=== PATIENT | female | born 1960 | race Caucasian/White ===

== ENCOUNTER 2017-08-30 19:48 | Emergency (ER) | payer BC, SELFPAY | END 2017-08-30 22:17 | disposition home or self-care (01) | PROVIDERS: Emergency Provider Emergency Medicine; Family Provider Internal Medicine Adolescent Medicine; Visit Provider Emergency Medicine | DX: R09.1 Pleurisy (principal); E78.5 Hyperlipidemia, unspecified; E11.9 Type 2 diabetes mellitus without complications; Z72.0 Tobacco use; J44.9 Chronic obstructive pulmonary disease, unspecified | CPT/HCPCS: 71020; 80053; 82550; 82553; 83605; 84484; 85025; 85378; 87040; 93005; 93041; 94640; 96374; 96375; 99284 ==

== ENCOUNTER → 2018-02-07 13:10 | Outpatient (CLI) | payer SELFPAY | PROVIDERS: Visit Provider Nurse Practitioner Family ==

== ENCOUNTER → 2018-02-07 13:16 | Outpatient (CLI) | payer BC, SELFPAY ==
[2018-02-07 13:55] LABS: Hemoglobin A1C 5.9 % (0.0-7.0)
[2018-02-07 14:21] LABS: Alanine Aminotransferase 40 U/L (12-78); Albumin Level 3.9 gm/dL (3.4-5.0); Albumin/Globulin Ratio 1.2 (1.1-1.8); Alkaline Phosphatase 115 U/L (46-116); Anion Gap 16.3 mEq/L (5-15); Aspartate Amino Transferase 24 U/L (15-37); Bilirubin,Total 0.5 mg/dL (0.2-1.0); Blood Urea Nitrogen 13 mg/dL (7-18); Calcium 9.5 mg/dL (8.5-10.1); Carbon Dioxide 27 mmol/L (21.0-32.0); Chloride 102 mmol/L (98-107); Chol/HDL Ratio 3.6 (1-3.5); Cholesterol 166 mg/dL (140-200); Creatinine,Serum 0.97 mg/dL (0.55-1.02); Estimated Glomerular Filt Rate 59 ml/min (>60); GFR (African American) 71 ML/MIN (>60); Globulin 3.2 gm/dl (1.3-3.2); Glucose 102 mg/dL (74-106); HDL Cholesterol 46 mg/dL (29-89); LDL Cholesterol 93 mg/dL (0-130); Potassium 4.3 mmoL/L (3.5-5.1); Sodium 141 mmol/L (136-145); Thyroid Stimulating Hormone 2.63 uIU/ml (0.358-3.740); Total Protein,Serum 7.1 gm/dL (6.4-8.2); Triglycerides 133 mg/dL (30-200); VLDL Cholesterol 27 mg/dL (0-40)
[2018-02-08 19:23] LABS: Vitamin D 25 Hydroxy 64.4 ng/mL (30.0-100.0)
== END ==
PROVIDERS: Visit Provider Nurse Practitioner Family
DX: E11.9 Type 2 diabetes mellitus without complications (principal); E78.2 Mixed hyperlipidemia; E03.9 Hypothyroidism, unspecified; E55.9 Vitamin D deficiency, unspecified
CPT/HCPCS: 36415; 80053; 80061; 82652; 83036; 84443

== ENCOUNTER → 2018-07-17 16:13 | Outpatient (CLI) | payer BC, SELFPAY ==
--- NOTE | 2018-07-17 16:18 | MM_ITS ---
MM Dig screening mamm BI w/CAD CAD Screening COMPARISON: Digital mammograms with CAD 12/29/2015 and 06/14/2017 INDICATION: There is no personal or family history of breast cancer. This been previous biopsy left breast for benign disease. TECHNIQUE: Standard CC and MLO images were obtained. R2 CAD reviewed. FINDINGS: Prominent and diffuse heterogenic fibroglandular densities are seen in both breasts. There is a mole marker near the axillary tail left breast. There are scattered benign-appearing calcifications in each breast. A biopsy clip is seen outer quadrant left breast at the 3:00 position. There is no suspicious lesion and no suspicious microcalcifications. IMPRESSION: Diffusely dense parenchymal pattern with no suspicious lesion seen BI-RADS Category: 2 Benign Finding(s) RECOMMENDED FOLLOW-UP: 1YR - 1 YEAR FOLLOW-UP (A letter has been sent to the patient regarding results of the study.)
== END ==
PROVIDERS: PCP Nurse Practitioner Family; Visit Provider Nurse Practitioner Family
DX: Z12.31 Encounter for screening mammogram for malignant neoplasm of breast (principal)
CPT/HCPCS: 77067

== ENCOUNTER → 2018-09-19 11:15 | Outpatient (CLI) | payer BC, SELFPAY ==
[2018-09-19 12:32] LABS: Alanine Aminotransferase 40 U/L (12-78); Albumin Level 3.6 gm/dL (3.4-5.0); Albumin/Globulin Ratio 1.1 (1.1-1.8); Alkaline Phosphatase 103 U/L (46-116); Aspartate Amino Transferase 20 U/L (15-37); Bilirubin,Total 0.4 mg/dL (0.2-1.0); Blood Urea Nitrogen 11 mg/dL (7-18); Carbon Dioxide 30 mmol/L (21.0-32.0); Chloride 101 mmol/L (98-107); Chol/HDL Ratio 3.7 (1-3.5); Cholesterol 178 mg/dL (140-200); Creatinine,Serum 1.05 mg/dL (0.55-1.02); Estimated Glomerular Filt Rate 54 ml/min (>60); GFR (African American) 65 ML/MIN (>60); Globulin 3.3 gm/dl (1.3-3.2); Glucose 107 mg/dL (74-106); HDL Cholesterol 48 mg/dL (29-89); LDL Cholesterol 99 mg/dL (0-130); Sodium 140 mmol/L (136-145); Thyroid Stimulating Hormone 4.07 uIU/ml (0.358-3.740); Total Protein,Serum 6.9 gm/dL (6.4-8.2); Triglycerides 157 mg/dL (30-200); VLDL Cholesterol 31 mg/dL (0-40)
[2018-09-19 12:42] LABS: Hemoglobin A1C 5.9 % (0.0-7.0)
[2018-09-20 18:08] LABS: Vitamin D 25 Hydroxy 72.9 ng/mL (30.0-100.0)
== END ==
PROVIDERS: Visit Provider Nurse Practitioner Family
DX: E78.2 Mixed hyperlipidemia (principal); E11.9 Type 2 diabetes mellitus without complications; E06.9 Thyroiditis, unspecified; E55.9 Vitamin D deficiency, unspecified
CPT/HCPCS: 36415; 80053; 80061; 82652; 83036; 84443

== ENCOUNTER → 2019-01-01 16:03 | Outpatient (CLI) | payer BC, SELFPAY ==
[2019-01-01 18:40] LABS: Anion Gap 14.4 mEq/L (5-15); Blood Urea Nitrogen 18 mg/dL (7-18); Calcium 9.8 mg/dL (8.5-10.1); Carbon Dioxide 28 mmol/L (21.0-32.0); Chloride 102 mmol/L (98-107); Creatinine,Serum 1.13 mg/dL (0.55-1.02); Estimated Glomerular Filt Rate 49 ml/min (>60); GFR (African American) 60 ML/MIN (>60); Glucose 125 mg/dL (74-106); Potassium 4.4 mmoL/L (3.5-5.1); Sodium 140 mmol/L (136-145); Thyroid Stimulating Hormone 1.38 uIU/ml (0.358-3.740)
== END ==
PROVIDERS: Visit Provider Internal Medicine Adolescent Medicine
DX: E03.9 Hypothyroidism, unspecified (principal)
CPT/HCPCS: 36415; 80048; 84443

== ENCOUNTER → 2019-04-02 11:39 | Outpatient (CLI) | payer BC, SELFPAY ==
[2019-04-02 14:01] LABS: Alanine Aminotransferase 46 U/L (12-78); Albumin Level 3.4 gm/dL (3.4-5.0); Alkaline Phosphatase 114 U/L (46-116); Anion Gap 11.2 mEq/L (5-15); Aspartate Amino Transferase 18 U/L (15-37); Bilirubin,Total 0.4 mg/dL (0.2-1.0); Blood Urea Nitrogen 15 mg/dL (7-18); Calcium 9.3 mg/dL (8.5-10.1); Carbon Dioxide 31 mmol/L (21.0-32.0); Chloride 101 mmol/L (98-107); Cholesterol 147 mg/dL (140-200); Creatinine,Serum 1.03 mg/dL (0.55-1.02); Estimated Glomerular Filt Rate 55 ml/min (>60); GFR (African American) 66 ML/MIN (>60); Globulin 3.4 gm/dl (1.3-3.2); Glucose 98 mg/dL (74-106); HDL Cholesterol 37 mg/dL (29-89); LDL Cholesterol 75 mg/dL (0-130); Potassium 4.2 mmoL/L (3.5-5.1); Sodium 139 mmol/L (136-145); Thyroid Stimulating Hormone 2.55 uIU/ml (0.358-3.740); Total Protein,Serum 6.8 gm/dL (6.4-8.2); Triglycerides 174 mg/dL (30-200); VLDL Cholesterol 35 mg/dL (0-40)
[2019-04-02 15:01] LABS: Hemoglobin A1C 6.1 % (0.0-7.0)
[2019-04-03 08:23] LABS: Vitamin D 25 Hydroxy 46.8 ng/mL (30.0-100.0)
== END ==
PROVIDERS: Visit Provider Nurse Practitioner Family
DX: E11.9 Type 2 diabetes mellitus without complications (principal); E78.2 Mixed hyperlipidemia; E03.9 Hypothyroidism, unspecified; E55.9 Vitamin D deficiency, unspecified
CPT/HCPCS: 36415; 80053; 80061; 82652; 83036; 84443

== ENCOUNTER → 2019-08-20 16:33 | Outpatient (CLI) | payer BC, SELFPAY ==
--- NOTE | 2019-08-20 16:39 | MM_ITS ---
PROCEDURE: MM DIG SCREENING MAMM BI W/CAD CLINICAL INDICATION: ROUTINE SCREENING There is no personal or family history of breast cancer. There has been a previous biopsy left breast for benign disease. COMPARISON: DMDXUAVL DIG MAMM-DX UNI A/VWS-LT W/CAD from 06/26/2017 DMDXUL DIG MAMM-DX UNI-LT W/CAD from 07/25/2017 [facility] MM Dig screening mamm BI w/CAD from 07/17/2018 TECHNIQUE: Standard CC and MLO images were obtained. R2 CAD reviewed. FINDINGS: Moderate diffuse fibroglandular densities are seen in the central portions of both breasts. There are benign-appearing calcifications in each breast and there is a biopsy clip central portion left breast. There is a mole marker upper central left breast. There is no suspicious lesion in either breast and no suspicious microcalcifications. IMPRESSION: Fibrofatty parenchyma with no suspicious lesions seen BI-RAD Category: 2 Benign Finding(s) FOLLOW-UP: 1YR 1 Year Follow-up (A letter has been sent to the patient regarding results of the study.) Dictated by: Dr. Ricco Langston MD 08/24/2019 15:[address] Ricco Langston MD in [place] 08/24/2019 15:57
== END ==
PROVIDERS: PCP Internal Medicine Adolescent Medicine; Visit Provider Internal Medicine Adolescent Medicine
DX: Z12.31 Encounter for screening mammogram for malignant neoplasm of breast (principal)
CPT/HCPCS: 77067

== ENCOUNTER → 2019-09-24 11:31 | Outpatient (CLI) | payer BC, SELFPAY ==
[2019-09-24 12:07] LABS: Basophils # 0.1 K/mm3 (0-0.2); Basophils % 0.9 % (0.1-2.0); Eosinophils # 0.3 K/mm3 (0.0-0.4); Eosinophils % 2.5 % (0.1-12.0); Hematocrit 46.4 % (37.0-47.0); Hemoglobin 14.8 g/dL (12.2-16.2); Lymphocytes # 3.1 K/mm3 (0.7-4.5); Lymphocytes % 28.7 % (10-50); Mean Corpuscular Volume 87.5 fl (81-99); Mean Platelet Volume 7.6 fl (7.4-10.4); Monocytes # 0.5 K/mm3 (0.1-1.0); Monocytes % 4.4 % (1.7-9.3); Neutrophils # 6.8 K/mm3 (1.8-7.8); Neutrophils % 63.4 % (37.0-80.0); Platelet Count 352 K/mm3 (142-424); White Blood Count 10.7 K/mm3 (4.8-10.8)
[2019-09-24 12:08] LABS: Hemoglobin A1C 6.3 % (0.0-7.0)
[2019-09-24 14:31] LABS: Alanine Aminotransferase 42 U/L (12-78); Albumin Level 3.7 gm/dL (3.4-5.0); Albumin/Globulin Ratio 1.1 (1.1-1.8); Alkaline Phosphatase 131 U/L (46-116); Anion Gap 14.5 mEq/L (5-15); Aspartate Amino Transferase 21 U/L (15-37); Bilirubin,Total 0.5 mg/dL (0.2-1.0); Blood Urea Nitrogen 22 mg/dL (7-18); Calcium 9.5 mg/dL (8.5-10.1); Carbon Dioxide 26 mmol/L (21.0-32.0); Chloride 102 mmol/L (98-107); Chol/HDL Ratio 5.5 (1-3.5); Cholesterol 216 mg/dL (140-200); Creatinine,Serum 0.98 mg/dL (0.55-1.02); Estimated Glomerular Filt Rate 58 ml/min (>60); GFR (African American) 70 ML/MIN (>60); Globulin 3.3 gm/dl (1.3-3.2); Glucose 129 mg/dL (74-106); HDL Cholesterol 39 mg/dL (29-89); LDL Cholesterol 134 mg/dL (0-130); Potassium 4.5 mmoL/L (3.5-5.1); Sodium 138 mmol/L (136-145); Thyroid Stimulating Hormone 2.82 uIU/ml (0.358-3.740); Triglycerides 213 mg/dL (30-200); VLDL Cholesterol 43 mg/dL (0-40)
[2019-09-25 15:41] LABS: Vitamin D 25 Hydroxy 30.2 ng/mL (30.0-100.0)
== END ==
PROVIDERS: Visit Provider Internal Medicine Adolescent Medicine
DX: E78.2 Mixed hyperlipidemia (principal); E03.9 Hypothyroidism, unspecified; E55.9 Vitamin D deficiency, unspecified; E11.9 Type 2 diabetes mellitus without complications; Z79.84 Long term (current) use of oral hypoglycemic drugs
CPT/HCPCS: 36415; 80053; 80061; 82652; 83036; 84443; 85025

== ENCOUNTER → 2019-11-10 15:32 | Outpatient (CLI) | payer BC, SELFPAY ==
--- NOTE | 2019-11-10 | XR_ITS ---
PROCEDURE: XR CHEST 2V CLINICAL HISTORY: COMPARISON: CXR CHEST(2 VIEWS-NOT PORTABLE) from 08/30/2017 XR CHEST 2V from 07/17/2019 XR CHEST 2V from 09/10/2019 XR CHEST 2V from 09/13/2019 FINDINGS: The cardiomediastinal silhouette and pulmonary vascularity are within normal limits. There is patchy increased density in the right lower lobe consistent with infiltrate. Calcified granulomas present left lower lobe. No acute bony abnormalities. IMPRESSION: Patchy right lower lobe infiltrate Dictated by: Agus Bucio MD 11/10/2019 17:21 Electronically signed by Agus Bucio MD in [place] 11/10/2019 17:21
[2019-11-10 17:37] LABS: Adenovirus,PCR Not Detected (NotDetected); Bordetella Pertussis Not Detected (NotDetected); Chlamydophila Pneumoniae, PCR Not Detected (NotDetected); Coronavirus 229E Not Detected (NotDetected); Coronavirus NL63 Not Detected (NotDetected); Coronavirus OC43 Not Detected (NotDetected); Coronovirus HKU1,PCR Not Detected (NotDetected); Human Metapneumovirus Not Detected (NotDetected); Influenza A, PCR Not Detected (NotDetected); Influenza AH1, 2009 Not Detected (NotDetected); Influenza AH1, PCR Not Detected (NotDetected); Influenza AH3,PCR Not Detected (NotDetected); Influenza B, PCR Not Detected (NotDetected); Mycoplasma Pneumoniae, PCR Not Detected (NotDetected); Parainfluenza 1, PCR Not Detected (NotDetected); Parainfluenza 2, PCR Not Detected (NotDetected); Parainfluenza 3, PCR Not Detected (NotDetected); Parainfluenza 4, PCR Not Detected (NotDetected); Respiratory Syncytial Virus Not Detected (NotDetected); Rhinovirus/Enterovirus Not Detected (NotDetected)
[2019-11-10 17:54] LABS: Basophils # 0.1 K/mm3 (0-0.2); Basophils % 0.7 % (0.1-2.0); Eosinophils # 0.3 K/mm3 (0.0-0.4); Eosinophils % 2.9 % (0.1-12.0); Hematocrit 41.3 % (37.0-47.0); Hemoglobin 13.8 g/dL (12.2-16.2); Lymphocytes # 3.4 K/mm3 (0.7-4.5); Lymphocytes % 29.1 % (10-50); Mean Corpuscular HGB Conc 33.3 g/dL (31.8-35.4); Mean Corpuscular Hemoglobin 28.8 pg (27.0-31.2); Mean Corpuscular Volume 86.4 fl (81-99); Monocytes # 0.4 K/mm3 (0.1-1.0); Monocytes % 3.5 % (1.7-9.3); Neutrophils # 7.5 K/mm3 (1.8-7.8); Neutrophils % 63.7 % (37.0-80.0); Platelet Count 344 K/mm3 (142-424); Red Blood Count 4.78 M/mm3 (4.20-5.40); Red Cell Distribution Width 13.6 % (11.5-17.5); White Blood Count 11.7 K/mm3 (4.8-10.8)
[2019-11-10 20:09] LABS: Chloride 102 mmol/L (98-107)
[2019-11-10 20:10] LABS: Potassium 4.5 mmoL/L (3.5-5.1); Sodium 139 mmol/L (136-145)
[2019-11-10 20:12] LABS: Blood Urea Nitrogen 18 mg/dl (7-17); Estimated Glomerular Filt Rate 57 ml/min (>60); GFR (African American) 69 ML/MIN (>60)
[2019-11-10 20:13] LABS: Anion Gap 15.5 mEq/L (5-15); Calcium 10.2 mg/dl (8.4-10.2); Carbon Dioxide 26 mmol/L (22.0-30.0); Glucose 134 mg/dl (74-100)
== END ==
PROVIDERS: PCP Internal Medicine Adolescent Medicine; Visit Provider Nurse Practitioner Family
DX: R05 Cough (principal); R68.89 Other general symptoms and signs; R06.2 Wheezing
CPT/HCPCS: 36415; 71046; 80048; 85025; 87486; 87581; 87633; 87798

== ENCOUNTER → 2019-11-24 12:54 | Outpatient (CLI) | payer BC, SELFPAY ==
[2019-11-24 13:19] LABS: Basophils # 0.1 K/mm3 (0-0.2); Basophils % 0.7 % (0.1-2.0); Eosinophils # 0.2 K/mm3 (0.0-0.4); Hemoglobin 13.6 g/dL (12.2-16.2); Lymphocytes # 3.6 K/mm3 (0.7-4.5); Lymphocytes % 31.9 % (10-50); Mean Corpuscular HGB Conc 33.3 g/dL (31.8-35.4); Mean Corpuscular Hemoglobin 28.6 pg (27.0-31.2); Mean Corpuscular Volume 85.8 fl (81-99); Mean Platelet Volume 7.1 fl (7.4-10.4); Monocytes # 0.5 K/mm3 (0.1-1.0); Monocytes % 4.8 % (1.7-9.3); Neutrophils # 6.8 K/mm3 (1.8-7.8); Neutrophils % 60.7 % (37.0-80.0); Platelet Count 358 K/mm3 (142-424); Red Blood Count 4.78 M/mm3 (4.20-5.40); Red Cell Distribution Width 13.5 % (11.5-17.5); White Blood Count 11.2 K/mm3 (4.8-10.8)
[2019-11-24 14:03] LABS: Erythrocyte Sedimentation Rate 22 mm/hr (0-30)
[2019-11-24 14:59] LABS: Chloride 101 mmol/L (98-107)
[2019-11-24 15:00] LABS: Sodium 140 mmol/L (136-145)
[2019-11-24 15:02] LABS: Alanine Aminotransferase 32 U/L (12-78); Alkaline Phosphatase 91 U/L (38-126); Aspartate Amino Transferase 30 U/L (14-36); Bilirubin,Total 0.2 mg/dl (0.2-1.3); Blood Urea Nitrogen 19 mg/dl (7-17); Carbon Dioxide 30 mmol/L (22.0-30.0); Creatine Kinase 62 U/L (30-135); Estimated Glomerular Filt Rate 64 ml/min (>60); GFR (African American) 77 ML/MIN (>60)
[2019-11-24 15:03] LABS: Albumin/Globulin Ratio 1.5 (1.1-1.8); Calcium 9.7 mg/dl (8.4-10.2); Globulin 2.6 g/dL (1.3-3.2); Glucose 105 mg/dl (74-100); Total Protein,Serum 6.6 g/dl (6.3-8.2)
== END ==
PROVIDERS: Visit Provider Nurse Practitioner Family
DX: J18.9 Pneumonia, unspecified organism (principal); M25.50 Pain in unspecified joint
CPT/HCPCS: 36415; 80053; 82550; 85025; 85651

== ENCOUNTER → 2020-01-06 13:59 | Outpatient (CLI) | payer BC, SELFPAY ==
[2020-01-06 15:52] LABS: Basophils # 0.1 K/mm3 (0-0.2); Eosinophils # 0.3 K/mm3 (0.0-0.4); Eosinophils % 2.3 % (0.1-12.0); Hematocrit 43.5 % (37.0-47.0); Hemoglobin 14.4 g/dL (12.2-16.2); Lymphocytes # 3.6 K/mm3 (0.7-4.5); Lymphocytes % 29.2 % (10-50); Mean Corpuscular HGB Conc 33.2 g/dL (31.8-35.4); Mean Corpuscular Hemoglobin 28.3 pg (27.0-31.2); Mean Corpuscular Volume 85.2 fl (81-99); Mean Platelet Volume 8.1 fl (7.4-10.4); Monocytes # 0.6 K/mm3 (0.1-1.0); Monocytes % 4.7 % (1.7-9.3); Neutrophils # 7.8 K/mm3 (1.8-7.8); Neutrophils % 62.7 % (37.0-80.0); Platelet Count 373 K/mm3 (142-424); Red Blood Count 5.11 M/mm3 (4.20-5.40); Red Cell Distribution Width 13.6 % (11.5-17.5); White Blood Count 12.4 K/mm3 (4.8-10.8)
[2020-01-06 16:20] LABS: Chloride 101 mmol/L (98-107)
[2020-01-06 16:21] LABS: Potassium 4.2 mmoL/L (3.5-5.1); Sodium 139 mmol/L (136-145)
[2020-01-06 16:23] LABS: Alanine Aminotransferase 46 U/L (12-78); Alkaline Phosphatase 135 U/L (38-126); Anion Gap 13.2 mEq/L (5-15); Aspartate Amino Transferase 31 U/L (14-36); Bilirubin,Total 0.5 mg/dl (0.2-1.3); Blood Urea Nitrogen 15 mg/dl (7-17); Carbon Dioxide 29 mmol/L (22.0-30.0); Cholesterol 152 mg/dl (140-200); Estimated Glomerular Filt Rate 64 ml/min (>60); GFR (African American) 77 ML/MIN (>60); Triglycerides 194 mg/dl (30-150); VLDL Cholesterol 39 mg/dL (0-40)
[2020-01-06 16:24] LABS: Albumin Level 4.5 g/dl (3.5-5.0); Albumin/Globulin Ratio 1.7 (1.1-1.8); Chol/HDL Ratio 4.1 (1-3.5); Globulin 2.6 g/dL (1.3-3.2); Glucose 99 mg/dl (74-100); HDL Cholesterol 37 mg/dl (40-60); Total Protein,Serum 7.1 g/dl (6.3-8.2)
[2020-01-06 16:31] LABS: Hemoglobin A1C 5.8 % (4.0-6.0)
[2020-01-06 16:35] LABS: Direct LDL Cholesterol 108.62 mg/dL (100-129)
[2020-01-09 09:18] LABS: Vitamin D 25 Hydroxy 46.5 ng/mL (30.0-100.0)
== END ==
PROVIDERS: Visit Provider Internal Medicine Adolescent Medicine
DX: E78.2 Mixed hyperlipidemia (principal); E03.9 Hypothyroidism, unspecified; E55.9 Vitamin D deficiency, unspecified; E11.9 Type 2 diabetes mellitus without complications; Z79.84 Long term (current) use of oral hypoglycemic drugs
CPT/HCPCS: 36415; 80053; 80061; 82652; 83036; 84443; 85025

== ENCOUNTER → 2020-08-24 15:55 | Outpatient (CLI) | payer BC, SELFPAY ==
--- NOTE | 2020-08-24 15:57 | MM_ITS ---
PROCEDURE: MM DIG SCREENING MAMM BI W/CAD Digital Breast Tomosynthesis Included CLINICAL INDICATION: SCREENING There is no personal or family history of breast cancer. There has been a previous biopsy left breast for benign disease. COMPARISON: MG DMDXUL DIG MAMM-DX UNI-LT W/CAD from 07/25/2017 MG [facility] MM Dig screening mamm BI w/CAD from 07/17/2018 MG MM DIG SCREENING MAMM BI W/CAD from 08/20/2019 TECHNIQUE: Standard CC and MLO images and 3D Tomosynthesis was obtained. R2 CAD reviewed. FINDINGS: Prominent and somewhat heterogenic fibroglandular densities are seen throughout both breast. There is a biopsy clip left breast. There is a mole marker upper central portion left breast. There are couple of benign-appearing microcalcifications in each breast. There is no new or suspicious lesion in either breast and no suspicious microcalcifications. IMPRESSION: Moderate heterogenic density with no suspicious lesions seen BI-RAD Category: 2 Benign Finding(s) FOLLOW-UP: 1YR 1 Year Follow-up (A letter has been sent to the patient regarding results of the study.) Dictated by: Dr. Ricco Langston MD 08/27/2020 08:56 Dr. Ricco Langston MD in [place] 08/27/2020 08:56
== END ==
PROVIDERS: PCP Internal Medicine Adolescent Medicine; Visit Provider Internal Medicine Adolescent Medicine
DX: Z12.31 Encounter for screening mammogram for malignant neoplasm of breast (principal)
CPT/HCPCS: 77063; 77067

== ENCOUNTER → 2020-10-04 14:12 | Outpatient (CLI) | payer BC, SELFPAY ==
[2020-10-04 14:36] LABS: Basophils # 0.1 K/mm3 (0-0.2); Basophils % 1.2 % (0.1-2.0); Eosinophils # 0.6 K/mm3 (0.0-0.4); Eosinophils % 5.5 % (0.1-12.0); Hematocrit 48.1 % (37.0-47.0); Hemoglobin 15.8 g/dL (12.2-16.2); Lymphocytes # 3.6 K/mm3 (0.7-4.5); Lymphocytes % 33.2 % (10-50); Mean Corpuscular Hemoglobin 28.5 pg (27.0-31.2); Mean Corpuscular Volume 86.5 fl (81-99); Mean Platelet Volume 7.9 fl (7.4-10.4); Monocytes # 0.4 K/mm3 (0.1-1.0); Monocytes % 3.9 % (1.7-9.3); Neutrophils % 56.2 % (37.0-80.0); Platelet Count 351 K/mm3 (142-424); Red Blood Count 5.56 M/mm3 (4.20-5.40); Red Cell Distribution Width 14.2 % (11.5-17.5); White Blood Count 10.7 K/mm3 (4.8-10.8)
[2020-10-04 15:27] LABS: Hemoglobin A1C 6.1 % (4.0-6.0)
[2020-10-04 15:51] LABS: Chloride 104 mmol/L (98-107); Potassium 4.3 mmoL/L (3.5-5.1); Sodium 139 mmol/L (136-145)
[2020-10-04 15:54] LABS: Alanine Aminotransferase 57 U/L (12-78); Albumin Level 4.4 g/dl (3.5-5.0); Albumin/Globulin Ratio 1.6 (1.1-1.8); Alkaline Phosphatase 115 U/L (38-126); Anion Gap 13.3 mEq/L (5-15); Aspartate Amino Transferase 40 U/L (14-36); Bilirubin,Total 0.7 mg/dl (0.2-1.3); Blood Urea Nitrogen 12 mg/dl (7-17); Calcium 9.9 mg/dl (8.4-10.2); Carbon Dioxide 26 mmol/L (22.0-30.0); Cholesterol 131 mg/dl (140-200); Estimated Glomerular Filt Rate 57 ml/min (>60); GFR (African American) 68 ML/MIN (>60); Globulin 2.8 g/dL (1.3-3.2); Glucose 128 mg/dl (74-100); Total Protein,Serum 7.2 g/dl (6.3-8.2); Triglycerides 154 mg/dl (30-150); VLDL Cholesterol 31 mg/dL (0-40)
[2020-10-04 16:06] LABS: Direct LDL Cholesterol 65.54 mg/dL (100-129)
[2020-10-04 16:18] LABS: 25-OH Vitamin D, Total 32.3 ng/mL (30-100)
[2020-10-04 16:24] LABS: Thyroid Stimulating Hormone 1.29 uIU/mL (0.465-4.68)
[2020-10-04 16:42] LABS: Chol/HDL Ratio 3.2 (1-3.5); HDL Cholesterol 41 mg/dl (40-60)
== END ==
PROVIDERS: Visit Provider Internal Medicine Adolescent Medicine
DX: E78.2 Mixed hyperlipidemia (principal); E03.9 Hypothyroidism, unspecified; E55.9 Vitamin D deficiency, unspecified; E11.9 Type 2 diabetes mellitus without complications; Z79.84 Long term (current) use of oral hypoglycemic drugs
CPT/HCPCS: 36415; 80053; 80061; 82306; 83036; 84443; 85025

== ENCOUNTER → 2020-11-10 14:13 | Outpatient (CLI) | payer SELFPAY ==
[2020-11-10 18:20] LABS: Coronavirus 19 IgG Antibody Negative (Negative); Coronavirus 19 IgM Antibody Negative (Negative)
== END ==
PROVIDERS: Visit Provider Internal Medicine Gastroenterology
DX: Z01.818 Encounter for other preprocedural examination (principal); Z20.822 Contact with and (suspected) exposure to COVID-19; Z12.11 Encounter for screening for malignant neoplasm of colon
CPT/HCPCS: 36415; 86328

== ENCOUNTER 2020-11-12 09:25 | Day surgery (SDC) | payer BC, SELFPAY ==
[2020-11-03 09:08] VITALS: BMI 37.9
[2020-11-12] VITALS (7 sets, daily range): BP systolic 132–151; BP diastolic 78–93; PULSE 69–78; RESP 18; TEMP 35.6–36.4; O2SAT 91–97
[2020-11-12 10:11] LABS: POC Glucose,Bedside 140 (70-110)
--- NOTE | 2020-11-12 10:14 | P.PN_ITS ---
[facility] Anesthesia Checklist - Patient Identification Patient Identification: Verbal (Name & ) - Structural Data Admitted From: Home Planned Operative Procedure/s: colonoscopy Consent for Planned Operative Procedure(s) Verified: Yes Verified Documents: Surgical Consent - NPO Status Verified Time NPO: 00:00 - Cardiovascular Assessment Heart Sounds: S1 & S2 Pulse Rhythm: Regular - Airway Assessment C-Spine Mobility Assessed: Yes TMJ Mobility Assessed: Yes Dentition: Good Dentition - Neurological Assessment Level of Consciousness: Awake - Anesthesia Plan Anesthesia Risk discussed: Yes ASA Class: III Anesthesia Type: MAC [facility] History I have reviewed the patient's past medical history: Yes Medical History: Reports:: Cancer (cervical 1984), Diabetes Mellitus Type 2 Denies:: MRSA, Seizures *Have you ever received a pneumonia vaccine?: No *Have you received a flu vaccine this season?: Yes Anesthesia experience/problems:: none Laterality Cases: Right: Carpal Tunnel Release, Bilateral: Tonsillectomy Amputation: No Fractures: Yes (r foot) - *Social History Last grade of school completed: High school graduate Smoking Status: Current every day smoker Tobacco Type: cigarettes # Packs/Day (cigarettes): 1 Alcohol Intake: never Substance Use Type: marijuana *Occupational Status:: retired *Travel in the last 8 weeks: None Family Hx:: No significant family history
--- NOTE | 2020-11-12 10:46 | P.PCN_ITS ---
[facility] Procedure Note Procedure Note:: Flexible Sigmoidoscopy Procedure Report: Sigmoidoscopy Endoscopist: Jesse Vázquez II, MD Referring physician: Gilmer Hayward M.D. Date of Procedure: November 10, 2020 Equipment: Olympus 180 variable stiffness pediatric colonoscope Sedation: MAC sedation Indication: Mrs. Hidalgo is a 60-year-old female who is here for screening colonoscopy. The patient did have a colonoscopy in March 2016 and had a hyperplastic polyp removed. She has had crampy lower abdominal discomfort, bloating and gassiness. She also alternates between constipation and diarrhea. She reports no rectal bleeding, weight loss or family history of colon cancer. She did have prior hysterectomy. Procedure: Prior to the procedure, a history and physical exam was performed, and patient's medications and allergies were reviewed. The risks, benefits and alternatives of the sedation and procedure were discussed with the patient. All questions were answered and informed consent was obtained. The patient was brought to the procedure room. Patient identification and proposed procedure were verified by the physician and the nurse. The patient was placed in a left lateral decubitus position and the scope was passed under direct vision. Throughout the procedure, the patient's blood pressure, pulse, and oxygen saturations were monitored continuously. The colonoscopy was accomplished without difficulty. The patient tolerated the procedure well. Findings: On digital rectal examination there was normal rectal tone and there were no external hemorrhoids. The scope was then introduced through the anal canal to the rectum and advanced to 30 to 35 cm. There were marked pericolonic adhesions in the sigmoid colon with apparent fixed sigmoid colon making proximal advancement of the colonoscope very difficult. Because of this pericolonic adhesions and fixed nature of the this area of the sigmoid colon, I did deem thi s to have some risk trying to traverse this area of sigmoid colon. After some time, the procedure was aborted. There were extensive diverticulosis in the sigmoid colon. There were grade 1-2 internal hemorrhoids. Impression: 1. Sigmoid diverticulosis with marked sigmoid pericolonic adhesions impairing advancement through this area with colonoscope (incomplete colonoscopy) 2. Grade 1-2 internal hemorrhoids Plan: I do feel that the sigmoid adhesions are responsible for her bloating and crampy abdominal discomfort. I will will advise either virtual colonoscopy or Cologuard for screening. She is not yet due if she had full colonoscopy in March 2016 with only hyperplastic polyp. We will discuss this. I will also discuss whether surgical repair of these marked and dense sigmoid adhesions may improve her bowel function and quality of life.
== END 2020-11-12 11:45 | disposition home or self-care (01) ==
LOC: OUTP 09:26
PROVIDERS: PCP Internal Medicine Adolescent Medicine; Visit Provider Internal Medicine Gastroenterology
PROC: 0DJD8ZZ Inspection of Lower Intestinal Tract, Via Natural or Artificial Opening Endoscopic (ICD-10-PCS; CPT 45330; principal; 2020-11-12 10:30)
DX: Z12.11 Encounter for screening for malignant neoplasm of colon (principal); K56.50 Intestinal adhesions [bands], unspecified as to partial versus complete obstruction; Z86.010 Personal history of colon polyps; E11.9 Type 2 diabetes mellitus without complications; Z85.41 Personal history of malignant neoplasm of cervix uteri; Z87.39 Personal history of other diseases of the musculoskeletal system and connective tissue; Z72.0 Tobacco use; Z79.84 Long term (current) use of oral hypoglycemic drugs; Z79.51 Long term (current) use of inhaled steroids; Z79.899 Other long term (current) drug therapy
CPT/HCPCS: 45330; 82962

== ENCOUNTER → 2020-12-01 09:19 | Outpatient (CLI) | payer BC, SELFPAY ==
--- NOTE | 2020-12-01 09:25 | CT_ITS ---
PROCEDURE: CT ABDOMEN WO CON CLINICAL HISTORY: CHRONIC CONSTIPATION, INTRA-ABDOMINAL ADHESIONS Lower abd cramping bloating Internal hemorrhoids Intermittent nausea/vomiting after eating COMPARISON: CT ABDPELW/O CT ABD PELVIS W/O CONTRAST from 04/03/2016 TECHNIQUE: Axial images obtained with sagittal and coronal reformats. All CT scans at the facility use one or more dose reduction, viz: automated exposure control, ma/kV adjustment per patient size (including targeted exams where dose is matched to indication, i.e. head), or iterative reconstruction technique. FINDINGS: 4 mm nodules present in the right middle lobe incompletely imaged. Coronary artery calcifications are present. Fatty liver. The spleen, and pancreas have an unremarkable appearance. No renal or ureteral calculi. There are bilateral low-dense adrenal nodules consistent with adenomas. The right adrenal nodule measures 2.9 cm in the left adrenal nodule measures 2.8 cm. No intestinal obstruction or free air. No evidence of appendicitis. No abdominal mass evident. Exam does not include the entire pelvis. No acute bony anomalies. There is a tiny umbilical hernia containing fat IMPRESSION: Bilateral adrenal nodules consistent with adenomas not significantly changed. No acute abdominal or pelvic findings. 4 mm right middle lobe nodule. This may been present on the previous exam only minimally more prominent. Dictated by: Agus Bucio MD 12/02/2020 10:27 Agus Bucio MD in [place] 12/02/2020 10:27
== END ==
PROVIDERS: PCP Internal Medicine Adolescent Medicine; Visit Provider Internal Medicine Adolescent Medicine
DX: K66.0 Peritoneal adhesions (postprocedural) (postinfection) (principal); K59.09 Other constipation
CPT/HCPCS: 74150

== ENCOUNTER → 2021-01-25 09:16 | Outpatient (CLI) | payer BC, SELFPAY ==
--- NOTE | 2021-01-25 09:21 | US_ITS ---
PROCEDURE: US ABDOMEN LIMITED CLINICAL INDICATION: ABD PAIN COMPARISON: No exams were available for comparison FINDINGS: PANCREAS: Unremarkable. No obvious mass or abnormal fluid collection. No ductal dilatation LIVER: Diffuse increased echogenicity of the liver with poor through transmission of sound consistent with hepatic steatosis. No focal liver lesion demonstrated. There is appropriate direction of blood flow within non dilated portal vein. RIGHT KIDNEY: Unremarkable. Normal size and echogenicity. No hydronephrosis GALLBLADDER: No gallstones, gallbladder wall thickening, pericholecystic fluid, or biliary dilatation. IMPRESSION: Fatty liver otherwise negative right upper quadrant ultrasound Dictated by: Agus Bucio MD 01/25/2021 14:48 Agus Bucio MD in [place] 01/25/2021 14:48
== END ==
PROVIDERS: PCP Internal Medicine Adolescent Medicine; Visit Provider Surgery
DX: R10.9 Unspecified abdominal pain (principal)
CPT/HCPCS: 76705

== ENCOUNTER → 2021-07-01 09:37 | Outpatient (CLI) | payer BC, SELFPAY ==
[2021-07-01 10:19] LABS: Basophils # 0.2 K/mm3 (0-0.2); Basophils % 0.9 % (0.1-2.0); Eosinophils # 0.5 K/mm3 (0.0-0.4); Eosinophils % 3.1 % (0.1-12.0); Hematocrit 47.2 % (37.0-47.0); Hemoglobin 15.2 g/dL (12.2-16.2); Lymphocytes # 5.8 K/mm3 (0.7-4.5); Lymphocytes % 33.5 % (10-50); Mean Corpuscular HGB Conc 32.3 g/dL (31.8-35.4); Mean Corpuscular Hemoglobin 28.5 pg (27.0-31.2); Mean Corpuscular Volume 88.5 fl (81-99); Mean Platelet Volume 7.2 fl (7.4-10.4); Monocytes # 0.8 K/mm3 (0.1-1.0); Monocytes % 4.7 % (1.7-9.3); Neutrophils # 9.9 K/mm3 (1.8-7.8); Neutrophils % 57.7 % (37.0-80.0); Platelet Count 347 K/mm3 (142-424); Red Blood Count 5.33 M/mm3 (4.20-5.40); Red Cell Distribution Width 13.4 % (11.5-17.5); White Blood Count 17.2 K/mm3 (4.8-10.8)
[2021-07-01 10:21] LABS: MANUAL DIFFERENTIAL MANUAL DIFFERENTIAL (MANUAL DIFF)
[2021-07-01 10:52] LABS: Eosinophils % 2 % (0-3); Lymphocytes % 33 % (10-50); Monocytes % 4 % (2-9); Neutrophils % 61 % (42-76); Platelet Estimate Normal; RBC Morphology Normal; Total Cells Counted 100
[2021-07-01 10:57] LABS: Chloride 104 mmol/L (98-107)
[2021-07-01 10:58] LABS: Sodium 144 mmol/L (136-145)
[2021-07-01 11:00] LABS: Alanine Aminotransferase 27 U/L (12-78); Albumin Level 4.3 g/dl (3.5-5.0); Albumin/Globulin Ratio 1.5 (1.1-1.8); Alkaline Phosphatase 101 U/L (38-126); Aspartate Amino Transferase 29 U/L (14-36); Bilirubin,Total 0.7 mg/dl (0.2-1.3); Blood Urea Nitrogen 8 mg/dl (7-17); Estimated Glomerular Filt Rate 73 ml/min (>60); GFR (African American) 88 ML/MIN (>60); Globulin 2.9 g/dL (1.3-3.2); Total Protein,Serum 7.2 g/dl (6.3-8.2)
[2021-07-01 11:01] LABS: Calcium 9.4 mg/dl (8.4-10.2); Carbon Dioxide 29 mmol/L (22.0-30.0); Chol/HDL Ratio 3.3 (1-3.5); Cholesterol 142 mg/dl (140-200); Glucose 129 mg/dl (74-100); HDL Cholesterol 43 mg/dl (40-60); Triglycerides 173 mg/dl (30-150); VLDL Cholesterol 35 mg/dL (0-40)
[2021-07-01 11:31] LABS: Thyroid Stimulating Hormone 1.79 uIU/mL (0.465-4.68)
== END ==
PROVIDERS: Visit Provider Internal Medicine Adolescent Medicine
DX: E11.9 Type 2 diabetes mellitus without complications (principal); E78.2 Mixed hyperlipidemia; E03.9 Hypothyroidism, unspecified; Z79.84 Long term (current) use of oral hypoglycemic drugs
CPT/HCPCS: 36415; 80053; 80061; 83036; 84443; 85007; 85025

== ENCOUNTER → 2021-08-30 15:39 | Outpatient (CLI) | payer BC, SELFPAY ==
--- NOTE | 2021-08-30 15:42 | MM_ITS ---
PROCEDURE INFORMATION: Exam: MG Bilateral Screening 3D Mammography Exam date and time: 08/30/2021 3:42 PM Age: 60 years old Clinical indication: Encounter for screening mammogram for malignant neoplasm of breast TECHNIQUE: Imaging protocol: Bilateral screening tomosynthesis and 2D mammography including computer-aided detection (CAD) when performed. COMPARISON: 1. MG MM DIG SCREENING MAMM BI W/CAD 08/24/2020 4:11 PM 2. MG MM DIG SCREENING MAMM BI W/CAD 08/20/2019 4:46 PM FINDINGS: MAMMOGRAPHY: Breast composition: The breast tissue is composed of scattered areas of fibroglandular density. Mass: None. Architectural distortion: None. Calcifications: No suspicious calcifications. Asymmetric density: None. Skin thickening: None. Axillary adenopathy: None. IMPRESSION: No mammographic evidence of malignancy. Annual screening is recommended unless otherwise clinically indicated. ASSESSMENT: BI-RADS Category 1: Negative
== END ==
PROVIDERS: PCP Internal Medicine Adolescent Medicine; Visit Provider Internal Medicine Adolescent Medicine
DX: Z12.31 Encounter for screening mammogram for malignant neoplasm of breast (principal)
CPT/HCPCS: 77063; 77067

== ENCOUNTER → 2021-09-14 15:43 | Outpatient (CLI) | payer BC, SELFPAY | PROVIDERS: PCP Internal Medicine Adolescent Medicine; Visit Provider Nurse Practitioner | DX: Z20.822 Contact with and (suspected) exposure to COVID-19 (principal) | CPT/HCPCS: C9803; U0003; U0005 ==

== ENCOUNTER → 2022-05-01 08:25 | Outpatient (CLI) | payer BC, SELFPAY ==
--- NOTE | 2022-05-01 08:30 | US_ITS ---
FINAL REPORT CLINICAL HISTORY: EMESIS, PRESISTANT. RIGHT UPPER QUADRANT PAIN FINDINGS: ULTRASOUND RIGHT UPPER QUADRANT Sonographic imaging of the right upper quadrant was obtained. The pancreas is partially obscured. The liver is unremarkable. There is sludge within the gallbladder with no gallstones. There is no gallbladder wall thickening. There is no biliary ductal dilatation. The common duct is normal at 2 mm. Limited images of the right kidney are unremarkable. IMPRESSION: Sludge within the gallbladder with no gallstones. Otherwise unremarkable exam. Reviewed, Interpreted and Dictated by Tommy Mccarty MD Transcribed by Maryanne Lovett Authenticated and [facility]
== END ==
PROVIDERS: PCP Internal Medicine Adolescent Medicine; Visit Provider Internal Medicine Adolescent Medicine
DX: R10.11 Right upper quadrant pain (principal); R11.15 Cyclical vomiting syndrome unrelated to migraine
CPT/HCPCS: 76705

== ENCOUNTER → 2022-05-23 13:28 | Outpatient (CLI) | payer BC, SELFPAY | PROVIDERS: PCP Internal Medicine Adolescent Medicine; Visit Provider Internal Medicine Gastroenterology | DX: Z01.818 Encounter for other preprocedural examination (principal); Z20.822 Contact with and (suspected) exposure to COVID-19; Z13.810 Encounter for screening for upper gastrointestinal disorder | CPT/HCPCS: C9803; U0003; U0005 ==

== ENCOUNTER 2022-05-25 10:34 | Day surgery (SDC) | payer BC, SELFPAY ==
[2022-05-23 11:52] VITALS: BMI 29.8
[2022-05-25 11:41] VITALS: BP 142/75; PULSE 74; RESP 17; TEMP 36.4; O2SAT 97
[2022-05-25 11:49] LABS: POC Glucose,Bedside 110 (70-110)
--- NOTE | 2022-05-25 11:56 | P.PN_ITS ---
[facility] Medical History Cervical cancer COPD (chronic obstructive pulmonary disease) Diabetes mellitus, type 2 History of gastroesophageal reflux (GERD) Hyperlipidemia Hypertension Hypothyroid Kidney stone Surgical History (Updated 05/25/22 @ 11:39 by Lea Avila, RN) H/O colonoscopy H/O LEEP History of carpal tunnel surgery of right wrist History of esophagogastroduodenoscopy (EGD) History of hysterectomy History of open reduction and internal fixation (ORIF) procedure History of tonsillectomy Family History (Updated 05/25/22 @ 11:40 by Lea Avila, RN) Other AD (Alzheimer's disease) Family history of cancer Family history of diabetes mellitus type II Family history of hypertension Family history of myocardial infarction Family history of stroke Social History (Updated 05/25/22 @ 11:41 by Lea Avila, RN) Smoking Status: Current every day smoker tobacco type: cigarettes packs per day: 1 alcohol intake: never substance use type: marijuana current occupational status: retired Travel in the last 8 weeks: None caffeine: Yes [facility] Anesthesia Checklist Patient Identification Patient Identification: Arm Band Structural Data Admitted From: Home Planned Operative Procedure/s: colonoscopy Consent for Planned Operative Procedure(s) Verified: Yes Verified Documents: Surgical Consent and History and Physical NPO Status Verified Time NPO: 00:00 Additional verifications Anesthesia Reactions: No Airway Assessment C-Spine Mobility Assessed: Yes TMJ Mobility Assessed: Yes Dentition: Poor Dentition (lower. Edentulous upper) Neurological Assessment Level of Consciousness: Awake and Alert Anesthesia Plan Anesthesia Risk discussed: Yes Anesthesia Plan: Verified ASA Class: III Anesthesia Type: MAC
[2022-05-25 12:30] VITALS: O2SAT 97
--- NOTE | 2022-05-25 12:45 | P.PCN_ITS ---
Procedure: Date: 05/25/22 Patient Date of :: 1960 Procedure Performed:: Diagnostic EGD Indications:: Persistent nausea/vomiting Performing Provider:: Gerardo Zarate MD Referring Provider:: Sonny Wadsworth Sedation:: Propofol Procedure:: The gastroscope was gently passed through the incisoral orifice into the oral cavity and under direct visualization the esophagus was intubated. The endoscope was passed down the esophagus, through the stomach, and into the duodenum. Color, texture, mucosa, and anatomy of the esophagus, stomach, and duodenum were carefully examined with the scope. Findings:: Oropharynx: normal Esophagus: normal EG Junction: intact at 40 cm Cardia: normal Fundus: normal Body: Moderate amount of retained food material noted Antrum: normal, No evidence of outlet obstruction Duodenal bulb: normal Duodenum (second and third portion): normal Impression: Findings consistent with gastroparesis secondary to battery assembler diabetes Recommendations:: Strict glycemic control with consideration of prokinetic agents Complications:: None Estimated blood obtained (mL): 0
[2022-05-25 12:53] VITALS: BP 125/60; PULSE 65; RESP 18; TEMP 36.6; O2SAT 93
[2022-05-25 13:05] VITALS: BP 142/64; PULSE 67; RESP 18; O2SAT 97
[2022-05-25 13:15] VITALS: BP 131/65; PULSE 64; RESP 18; O2SAT 98
== END 2022-05-25 13:24 | disposition home or self-care (01) ==
PROVIDERS: PCP Internal Medicine Adolescent Medicine; Visit Provider Internal Medicine Gastroenterology
PROC: 0DJ08ZZ Inspection of Upper Intestinal Tract, Via Natural or Artificial Opening Endoscopic (ICD-10-PCS; CPT 43235; principal; 2022-05-25 12:00)
DX: R11.2 Nausea with vomiting, unspecified (principal); Z72.0 Tobacco use; E11.43 Type 2 diabetes mellitus with diabetic autonomic (poly)neuropathy; K31.84 Gastroparesis
CPT/HCPCS: 43235; 82962

== ENCOUNTER → 2022-06-27 11:36 | Outpatient (CLI) | payer BC, SELFPAY ==
--- NOTE | 2022-06-27 11:44 | ECG_ITS ---
APPROVED REPORT Exam: Resting ECG HR:61 bpm ECG Measurements Heart Rate 61 AXES IL 160 P 84 QRSd 91 QRS 76 QT 365 T 88 QTc 367 Conclusion SINUS RHYTHM NONSPECIFIC ST & T-WAVE ABNORMALITY BORDERLINE ECG UNCONFIRMED REPORT Electronically signed by : Gilmer Hayward MD 06/27/2022 20:52:20
[2022-06-27 12:53] LABS: Basophils # 0.2 K/mm3 (0-0.2); Basophils % 1.7 % (0.1-2.0); Eosinophils # 0.5 K/mm3 (0.0-0.4); Hematocrit 45.2 % (37.0-47.0); Hemoglobin 14.5 g/dL (12.2-16.2); Lymphocytes # 5.1 K/mm3 (0.7-4.5); Lymphocytes % 42.9 % (10-50); Mean Corpuscular HGB Conc 32.2 g/dL (31.8-35.4); Mean Corpuscular Hemoglobin 28.6 pg (27.0-31.2); Mean Platelet Volume 7.6 fl (7.4-10.4); Monocytes # 0.6 K/mm3 (0.1-1.0); Monocytes % 4.8 % (1.7-9.3); Neutrophils # 5.5 K/mm3 (1.8-7.8); Neutrophils % 46.6 % (37.0-80.0); Platelet Count 385 K/mm3 (142-424); Red Blood Count 5.08 M/mm3 (4.20-5.40); Red Cell Distribution Width 13.5 % (11.5-17.5); White Blood Count 11.9 K/mm3 (4.8-10.8)
[2022-06-27 13:27] LABS: Chloride 102 mmol/L (98-107)
[2022-06-27 13:28] LABS: Potassium 4.2 mmoL/L (3.5-5.1); Sodium 142 mmol/L (136-145)
[2022-06-27 13:30] LABS: Alanine Aminotransferase 18 U/L (12-78); Aspartate Amino Transferase 23 U/L (14-36); Blood Urea Nitrogen 10 mg/dl (7-17); Estimated Glomerular Filt Rate 63 ml/min (>60); GFR (African American) 77 ML/MIN (>60)
[2022-06-27 13:31] LABS: Albumin Level 4.1 g/dl (3.5-5.0); Albumin/Globulin Ratio 1.7 (1.1-1.8); Alkaline Phosphatase 92 U/L (38-126); Anion Gap 12.2 mEq/L (5-15); Bilirubin,Total 0.4 mg/dl (0.2-1.3); Calcium 9.6 mg/dl (8.4-10.2); Carbon Dioxide 32 mmol/L (22.0-30.0); Globulin 2.4 g/dL (1.3-3.2); Glucose 96 mg/dl (74-100); Total Protein,Serum 6.5 g/dl (6.3-8.2)
== END ==
PROVIDERS: PCP Internal Medicine Adolescent Medicine; Visit Provider Surgery
DX: Z01.818 Encounter for other preprocedural examination (principal); Z20.822 Contact with and (suspected) exposure to COVID-19; K83.8 Other specified diseases of biliary tract
CPT/HCPCS: 36415; 80053; 85025; 93005; C9803; U0003; U0005

== ENCOUNTER 2022-06-29 06:58 | Day surgery (SDC) | payer BC, SELFPAY ==
[2022-06-29] VITALS (11 sets, daily range): BP systolic 134–150; BP diastolic 52–68; PULSE 66–76; RESP 14–20; TEMP 36.1–43; O2SAT 93–97; BMI 29.8
[2022-06-29 07:41] LABS: POC Glucose,Bedside 115 (70-110)
--- NOTE | 2022-06-29 07:56 | P.PN_ITS ---
[facility] Medical History (Updated 06/29/22 @ 07:36 by Celine Gonsalves RN) Allergies Cervical cancer COPD (chronic obstructive pulmonary disease) Depression Diabetes mellitus, type 2 Gallbladder disease Hemorrhoid History of gastroesophageal reflux (GERD) Hyperlipidemia Hypertension Hypothyroid Irritable bowel syndrome (IBS) Kidney stone Sinus headache Surgical History (Updated 06/29/22 @ 07:33 by Celine Gonsalves RN) H/O colonoscopy H/O LEEP History of carpal tunnel surgery of right wrist History of esophagogastroduodenoscopy (EGD) History of hysterectomy History of open reduction and internal fixation (ORIF) procedure History of surgery History of tonsillectomy Family History Other AD (Alzheimer's disease) Family history of cancer Family history of diabetes mellitus type II Family history of hypertension Family history of myocardial infarction Family history of stroke Social History Smoking Status: Current every day smoker tobacco type: cigarettes packs per day: 1 pack-years: 30 alcohol intake: never substance use type: marijuana current occupational status: retired Travel in the last 8 weeks: None caffeine: Yes [facility] Anesthesia Checklist Patient Identification Patient Identification: Arm Band Structural Data Admitted From: Home Planned Operative Procedure/s: Laparoscopic Cholecystectomy Consent for Planned Operative Procedure(s) Verified: Yes Verified Documents: Surgical Consent and History and Physical NPO Status Verified Time NPO: 00:00 Additional verifications Anesthesia Reactions: No Hx Blood Transfusions: No Blood Transfusion Reaction: No Airway Assessment C-Spine Mobility Assessed: Yes TMJ Mobility Assessed: Yes Dentition: Good Dentition (upper dentures) Neurological Assessment Level of Consciousness: Awake and Alert Anesthesia Plan Anesthesia Risk discussed: Yes Anesthesia Plan: Verified ASA Class: II Anesthesia Type: General
--- NOTE | 2022-06-29 09:12 | EXP.OP.NOTE ---
Date of procedure: 06/29/22 Pre-op Diagnosis:: Right upper quadrant pain Biliary sludge Post-op Diagnosis:: Same Chronic cholecystitis Procedure performed:: Laparoscopic cholecystectomy Surgeon:: Richard Mancini MD CUSTOMS CONSULTANT:: Dylan David Anesthesia: GETA Estimated blood loss (mL): 15 Operative findings:: Mild gallbladder distention Moderate pericholecystic fat stranding Operative note:: After informed consent was obtained, the patient was taken to the operating room and placed in the supine position. General anesthesia was induced and the abdomen was prepped and draped in a sterile fashion. After infiltration with local anesthetic an infraumbilical incision was made. A Veress needle was placed in position. The abdomen was insufflated. A 5 mm optical trocar was placed in position. Under direct visualization, a 12 mm trocar was placed in the subxiphoid position and 2 additional 5 mm trocars were placed in the right upper quadrant. The gallbladder was elevated up and over the liver margin. The tissue around the cystic duct was carefully dissected. 3 clips were placed proximally and the duct was transected with harmonic scarlett. Harmonic scarlett were then utilized to dissect the gallbladder away from the liver margin with careful attention to the control of the cystic artery. The gallbladder was placed in a retrieval bag and removed through the subxiphoid trocar site. The right upper quadrant was thoroughly irrigated. No active bleeding or bile leak was noted. Fascia at the subxiphoid trocar site was reapproximated utilizing the NeoClose device. The remaining trocars were removed. All wounds were irrigated and skin was closed with 4-0 Monocryl in a subcuticular fashion. Steri-Strips were applied. The patient's anesthetic agents were reversed and extubation was completed prior to transfer to recovery in stable condition. Condition: stable Disposition: PACU Specimens:: Gallbladder and contents Complications:: No immediate
--- NOTE | 2022-06-29 09:17 | P.PNANES_ITS ---
[facility] Anesthesia Record Part I Anesthesia Record I Intake, IV Amount: 1,400 Estimated blood loss (mL): 0 Urine output (mL): 0 Blood Pressure: 150/62 SaO2: 94 Pulse Rate: 76 Respiratory Rate: 14 Temperature: 97 F Patient is:: Awake and Stable Stable to PACU at:: 09:15
[2022-06-29 09:26] LABS: POC Glucose,Bedside 198 (70-110)
--- NOTE | 2022-06-29 09:59 | SUR.PHASEI ---
0920 BS obtained with results of 198. David David CRNA notified. No new orders given at this time. 0942 called and gave detailed report to Rosemarie Virk RN. 0945 transported to post op via stretcher. vital signs stable. denies pain at this time. left in stable condition with Rosemarie Virk RN at bedside.
--- NOTE | 2022-06-29 10:36 | P.PNANES_ITS ---
[facility] Anesthesia Record Part II Anesthesia Record Part II Discharge Time: 09:45 Destination: Surgical Day Care (OP Surgery) PACU nurse assessment reviewed?: Yes Patient Condition:: Good Anesthesia Complications:: None Swallowing reflex intact?: Yes Cyanosis?: No Blood Pressure: 139/59 Pulse Rate: 70 Temperature: 97.5 F Mental Status: Alert & Oriented Pain level:: 0 Nausea and/or vomitting:: None Intake, IV Amount: 0
== END 2022-06-29 10:20 | disposition home or self-care (01) ==
PROVIDERS: PCP Internal Medicine Adolescent Medicine; Visit Provider Surgery
PROC: 0FT44ZZ Resection of Gallbladder, Percutaneous Endoscopic Approach (ICD-10-PCS; CPT 47562; principal; 2022-06-29 09:00)
DX: K81.1 Chronic cholecystitis (principal); Z72.0 Tobacco use; E11.9 Type 2 diabetes mellitus without complications
CPT/HCPCS: 47562; 82962; 88304; 96374; J2405; J2710

== ENCOUNTER → 2022-08-02 09:46 | Outpatient (CLI) | payer BC, SELFPAY ==
--- NOTE | 2022-08-02 09:46 | NM_ITS ---
FINAL REPORT TECHNIQUE: 0.52 Millicuries of technetium 99m sulfur colloid was ingested with eggs, toast and water. CLINICAL HISTORY: vomiting FINDINGS: GASTRIC EMPTYING SCAN Static images show normal emptying of the stomach into the small bowel. Based on the time activity curve, the estimated half-emptying time is 116 minutes. IMPRESSION: Somewhat delayed gastric emptying study. Reviewed, Interpreted and Dictated by Lamin Kim III, MD Transcribed by Fahad Bal Authenticated and [facility]
== END ==
PROVIDERS: PCP Internal Medicine Adolescent Medicine; Visit Provider Surgery
DX: R10.9 Unspecified abdominal pain (principal); R11.10 Vomiting, unspecified
CPT/HCPCS: 78264; A9541

== ENCOUNTER → 2022-08-07 08:48 | Outpatient (CLI) | payer BC, SELFPAY ==
--- NOTE | 2022-08-07 08:48 | FL_ITS ---
FINAL REPORT CLINICAL HISTORY: 3.50 fluoro time trouble swallowing vomiting FINDINGS: UPPER GI WITH SBFT HISTORY: Acute epigastric pain with nausea and vomiting. PROCEDURE: The patient ingested barium. Effervescent crystals were also administered. Spot and overhead films were obtained. Additional barium was administered for a SBFT. Fluoroscopy time: 3 minutes 50 seconds. 17 radiographs were obtained. FINDINGS: UGI: The esophagus is normal. There is no hiatal hernia. There is no gastroesophageal reflux. Peristalsis is normal. There are prominent rugal and duodenal folds. Stomach empties appropriately. SBFT: The tape sewer film is normal. There is no evidence of obstruction. The mucosal fold pattern is normal. The terminal ilium is normal. IMPRESSION: Nonspecific prominent rugal and duodenal folds which may be related to nondistention or gastroenteritis. Otherwise, unremarkable exam. Films reviewed , interpreted and dictated by Dr. Gutierrez. Transcribed by Iglesia Coleman PA-C. Reviewed, Interpreted and Dictated by David Gutierrez MD Transcribed by AIDE Yung Authenticated and [facility]
== END ==
PROVIDERS: PCP Internal Medicine Adolescent Medicine; Visit Provider Surgery
DX: R11.10 Vomiting, unspecified (principal)
CPT/HCPCS: 74246; 74248

== ENCOUNTER → 2022-10-23 14:53 | Outpatient (CLI) | payer BC, SELFPAY ==
--- NOTE | 2022-10-23 15:00 | MM_ITS ---
PROCEDURE INFORMATION: Exam: MG Bilateral Screening 3D Mammography Exam date and time: 10/23/2022 3:11 PM Age: 61 years old Clinical indication: Screening mammogram TECHNIQUE: Imaging protocol: Bilateral Screening tomosynthesis and 2D mammography including computer-aided detection (CAD) when performed. COMPARISON: 1. MG MM DIG SCREENING MAMM BI W/CAD 08/30/2021 3:44 PM 2. MG MM DIG SCREENING MAMM BI W/CAD 08/24/2020 4:11 PM 3. MG MM DIG SCREENING MAMM BI W/CAD 08/20/2019 4:46 PM 4. MG [facility] MM Dig screening mamm BI w/CAD 07/17/2018 4:26 PM FINDINGS: MAMMOGRAPHY: Breast composition: The breast is heterogeneously dense, which may obscure small masses. Mass: None. Architectural distortion: No new or suspicious architectural distortion. Calcifications: Stable benign-appearing calcifications are present. No new or suspicious cluster of microcalcifications have developed. Asymmetric density: No new or suspicious asymmetric density is present Skin thickening: None. Axillary adenopathy: None. IMPRESSION: No mammographic evidence of malignancy. Recommend annual screening mammography unless otherwise clinically indicated. ASSESSMENT: BI-RADS category 2: Benign
== END ==
PROVIDERS: PCP Internal Medicine Adolescent Medicine; Visit Provider Internal Medicine Adolescent Medicine
DX: Z12.31 Encounter for screening mammogram for malignant neoplasm of breast (principal)
CPT/HCPCS: 77063; 77067

== ENCOUNTER → 2022-11-17 07:49 | Outpatient (CLI) | payer BC, SELFPAY ==
--- NOTE | 2022-11-17 07:52 | CT_ITS ---
FINAL REPORT TECHNIQUE: Axial CT images of the chest were obtained without contrast. Low-dose protocol was utilized. This study was performed with techniques to keep radiation doses as low as reasonably achievable (ALARA). Individualized dose reduction techniques using automated exposure control or adjustment of mA and/or kV according to the patient's size were employed. CLINICAL HISTORY: H/O TOBACCO USE CURRENT SMOKER 1/2PPD X40 YEARS COMPARISON: CTA chest 09/13/2019 FINDINGS: CT CHEST WITHOUT, LOW DOSE SCREENING CT Di Vol: 2.90 mGy DLP: 99.77 mGy*cm There is no axillary, mediastinal, or hilar adenopathy. The heart size is normal. There is no pleural or pericardial effusion. The lung windows show a 2 mm anterior left upper lobe nodule on image 12 which appears new. There is a 4 mm posterior left upper lobe nodule which is stable. There are calcified granulomas. Limited images of the upper abdomen demonstrate bilateral low-attenuation adrenal masses consistent with adenomas. IMPRESSION: Sub-cm left upper lobe nodules. LR Category 2: 12 month follow-up low-dose chest CT is recommended. Reviewed, Interpreted and Dictated by Lamin Kim III, MD Transcribed by Mala Mitchell Authenticated and [facility]
--- NOTE | 2022-11-17 07:53 | XR_ITS ---
FINAL REPORT TECHNIQUE: Bone densitometry calculations of the lumbar spine and hip were obtained. CLINICAL HISTORY: . post menopausal FINDINGS: DEXA BONE DENSITY AXIAL SKELETON Using L1-4, the bone mineral density of the spine is 1.171 g/cm2, corresponding to T-score of 1.1. Using the right hip, the bone mineral density of the femoral neck is 0.795 g/cm2, corresponding to a T-score of -0.5. NOTE: T-score: Standard deviation compared with peak bone mass of young adult mean. *Following the recommendations of the International Society of Bone densitometry, classification of hip BMD is based on the lower of two T-scores; total hip or femoral neck. IMPRESSION: Normal bone mineral density of the lumbar spine and right hip. FRAX not reported because: All T-scores for spine total, hip total or femoral neck at or above -1.0. Reviewed, Interpreted and Dictated by Lamin Kim III, MD Transcribed by Maryanne Lovett Authenticated and [facility]
== END ==
LOC: RAD 07:49
PROVIDERS: PCP Internal Medicine Adolescent Medicine; Visit Provider Nurse Practitioner Family
DX: Z78.0 Asymptomatic menopausal state (principal); Z87.891 Personal history of nicotine dependence; Z12.2 Encounter for screening for malignant neoplasm of respiratory organs
CPT/HCPCS: 71271; 77080

== ENCOUNTER 2023-12-24 09:33 | Outpatient (CLI) | payer BC, SELFPAY ==
--- NOTE | 2023-12-24 09:43 | MM_ITS ---
PROCEDURE INFORMATION: Exam: MG Bilateral Screening 3D Mammography Exam date and time: 12/24/2023 9:28 AM Age: 63 years old Clinical indication: Screening. No family history of breast cancer. TECHNIQUE: Imaging protocol: Bilateral Screening tomosynthesis and 2D mammography including computer-aided detection (CAD) when performed. COMPARISON: 1. MG MM DIG SCREENING MAMM BI W/CAD 10/23/2022 3:11 PM 2. MG MM DIG SCREENING MAMM BI W/CAD 08/30/2021 3:44 PM 3. MG MM DIG SCREENING MAMM BI W/CAD 08/24/2020 4:11 PM 4. MG MM DIG SCREENING MAMM BI W/CAD 08/20/2019 4:46 PM FINDINGS: MAMMOGRAPHY: Breast composition: The breasts are heterogeneously dense, which may obscure small masses. Mass: None. Architectural distortion: None. Calcifications: No suspicious calcifications. Asymmetric density: None. Skin thickening: None. Axillary adenopathy: None. IMPRESSION: No mammographic evidence of malignancy. Annual screening is recommended unless otherwise clinically indicated. ASSESSMENT: BI-RADS Category 1: Negative
== END 2023-12-24 23:59 ==
LOC: RAD 09:33
PROVIDERS: PCP Internal Medicine Adolescent Medicine; Visit Provider Internal Medicine Adolescent Medicine
DX: Z12.31 Encounter for screening mammogram for malignant neoplasm of breast (principal)
CPT/HCPCS: 77063; 77067

== ENCOUNTER 2025-01-30 14:27 | Outpatient (CLI) | payer MEDICARE, SELFPAY ==
--- NOTE | 2025-01-30 14:31 | MM_ITS ---
PROCEDURE INFORMATION: Exam: MG Bilateral Screening 3D Mammography Exam date and time: 01/30/2025 2:34 PM Age: 64 years old Clinical indication: Screening. No family history of breast cancer. TECHNIQUE: Imaging protocol: Bilateral Screening tomosynthesis and 2D mammography including computer-aided detection (CAD) when performed. COMPARISON: 1. MG MM DIG SCREENING MAMM BI W/CAD 12/24/2023 9:28 AM 2. MG MM DIG SCREENING MAMM BI W/CAD 10/23/2022 3:11 PM 3. MG MM DIG SCREENING MAMM BI W/CAD 08/30/2021 3:44 PM 4. MG MM DIG SCREENING MAMM BI W/CAD 08/24/2020 4:11 PM FINDINGS: MAMMOGRAPHY: Breast composition: The breasts are heterogeneously dense, which may obscure small masses. Mass: None. Architectural distortion: None. Calcifications: No suspicious calcifications. Asymmetric density: None. Skin thickening: None. Axillary adenopathy: None. IMPRESSION: No mammographic evidence of malignancy. Annual screening is recommended unless otherwise clinically indicated. ASSESSMENT: BI-RADS Category 1: Negative.
== END 2025-01-30 23:59 | disposition home or self-care (01) ==
LOC: RAD 14:28
PROVIDERS: PCP Internal Medicine Adolescent Medicine; Visit Provider Nurse Practitioner Family
DX: Z12.31 Encounter for screening mammogram for malignant neoplasm of breast (principal)
CPT/HCPCS: 77063; 77067